=== PATIENT | male | born 2000 | race Caucasian/White ===

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

== ENCOUNTER 2021-01-05 16:59 | Emergency (ER) | payer BC, OTHER ==
[2021-01-05 17:21] VITALS: TEMP 98.3
--- NOTE | 2021-01-05 18:11 | XR ---
EXAMINATION TYPE: XR hand complete LT DATE OF EXAM: 01/05/2021 COMPARISON: NONE HISTORY: Pain TECHNIQUE: 3 views FINDINGS: Metacarpals are intact. I see no fracture nor dislocation. Joint spaces are normal. There a re no erosions. IMPRESSION: Negative left hand exam. No fracture.
--- NOTE | 2021-01-05 19:00 | ED ---
Upper Extremity HPI - General Chief Complaint: Extremity Injury, Upper Stated Complaint: finger injury Time Seen by Provider: 01/05/21 17:20 Source: patient Mode of arrival: ambulatory Limitations: no limitations - History of Present Illness Initial Comments: Patient is a 20-year-old male with no past medical history presents to emergency room with reported right hand pain. 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 States that he began having pain in the distal tip of his right middle finger. Patient had notable blood blisters. There is no disruption in the skin. He has decreased range of motion secondary to pain. He is right hand dominant. He also sustained a laceration to the distal top of his right thumb. Unknown of his last tetanus vaccine. Denies any wrist or elbow pain. No other alleviating, precipitating or modifying factors - Related Data Home Medications Medication Instructions Recorded Confirmed No Known Home Medications 06/19/18 06/19/18 Allergies Allergy/AdvReac Type Severity Reaction Status Date / Time No Known Allergies Allergy Verified 01/05/21 17:21 Review of Systems ROS Statement: Those systems with pertinent positive or pertinent negative responses have been documented in the HPI. ROS Other: All systems not noted in ROS Statement are negative. Past Medical History Past Medical History: No Reported History History of Any Multi-Drug Resistant Organisms: None Reported Past Surgical History: No Surgical Hx Reported Past Psychological History: No Psychological Hx Reported Smoking Status: Never smoker Past Alcohol Use History: Occasional Past Drug Use History: None Reported General Exam Limitations: no limitations General appearance: alert Extremities exam: Present: other (several small 2-4 mm blood blisters dorsal aspect right middle finger. No active bleeding. 10% subungal hematoma. superficial avulsion 7 x 5 mm right distal thumb. No active bleeding) Psychiatric exam: Present: normal affect, normal mood Skin exam: Present: warm, dry Course Vital Signs 01/05/21 01/05/21 01/05/21 17:19 19:00 19:05 Temperature 98.3 F 98.3 F Pulse Rate 84 85 85 Respiratory 20 16 16 Rate Blood Pressure 129/79 142/98 142/98 O2 Sat by Pulse 98 98 98 Oximetry Medical Decision Making - Medical Decision Making Upon arrival patient placed in room 16. History and physical exam was performed. The patient's hand was cleansed. Avulsion does not require repair at this time. Tetanus shot is recommended however the patient adamantly refuses. Risks are discussed the patient and he continues to refuse. X-ray is performed which demonstrates no acute fractures. I did discuss the diagnosis, differential and treatment options. Patient is placed in a baseball splint. Recommended that he have repeat x-rays in 7-10 days if he has persistent pain. He does have intact range of motion. I did offer something for pain control however he refused. He is instructed to take Motrin and Tylenol at home. Return to the emergency room for any new or worsening symptoms. patient was discharged home in stable cond ition Disposition Clinical Impression: Right hand pain, Finger laceration Disposition: HOME SELF-CARE Condition: Stable Instructions (If sedation given, give patient instructions): Hand Sprain (ED) Additional Instructions: Please follow-up with your primary care doctor in 2-4 days for reevaluation. You may need repeat x-rays in 7 days if your pain persists. Keep your cut clean and dry. Return to the emergency room for any new or worsening symptoms Is patient prescribed a controlled substance at d/c from ED?: No Referrals: None,Stated [Primary Care Provider] - 1-2 days Time of Disposition: 19:00
[2021-01-05 19:01] VITALS: BP 142/98; PULSE 85; RESP 16
== END 2021-01-05 19:05 | disposition home or self-care (01) ==
LOC: EC 16:59
DX: S61.011A Laceration without foreign body of right thumb without damage to nail, initial encounter (principal); W31.89XA Contact with other specified machinery, initial encounter; Y93.89 Activity, other specified
CPT/HCPCS: 99283

== ENCOUNTER 2022-01-03 10:36 | Emergency (ER) | payer BC ==
[2022-01-03 11:26] VITALS: TEMP 98
[2022-01-03] MEDS ORDERED: diphenhydrAMINE 50 MG/ML 1 ML VIAL IVP STA (12:13)
[2022-01-03] MEDS ORDERED: METOCLOPRAMIDE 5 MG/ML 2 ML VIAL IVP STA (12:13)
[2022-01-03] MEDS ORDERED: DEXAMETHASONE SOD PHOSPHATE 10 MG/ML 1 ML VIAL IV STA (12:13)
[2022-01-03] MEDS ORDERED: SODIUM CHLORIDE 0.9% 1,000 ML IV STA (12:13)
[2022-01-03 12:33] LABS: Basophils % (A) 0 %; Eosinophils # (A) 0.1 k/uL (0-0.7); Eosinophils % (A) 1 %; HCT 44.4 % (39.0-53.0); HGB 15.3 gm/dL (13.0-17.5); Lymphocytes # (A) 0.8 k/uL (1.0-4.8); Lymphocytes % (A) 9 %; MCH 31.6 pg (25.0-35.0); MCHC 34.4 g/dL (31.0-37.0); MCV 91.9 fL (80.0-100.0); Mean Platelet Volume 7.6; Monocytes # (A) 0.3 k/uL (0-1.0); Monocytes % (A) 3 %; Neutrophils # (A) 7.4 k/uL (1.3-7.7); Neutrophils % (A) 85 %; Platelet Count 236 k/uL (150-450); RBC 4.83 m/uL (4.30-5.90); RDW 12.8 % (11.5-15.5); WBC 8.7 k/uL (3.8-10.6)
[2022-01-03 12:44] LABS: ALT 15 U/L (4-49); AST 22 U/L (17-59); African American GFR (CKD) >90 (>60 ml/min/1.73 sqM); Albumin 4.9 g/dL (3.5-5.0); Alkaline Phosphatase 60 U/L (38-126); Anion Gap 5 mmol/L; Blood Urea Nitrogen 12 mg/dL (9-20); Calcium 9.9 mg/dL (8.4-10.2); Carbon Dioxide 28 mmol/L (22-30); Chloride 105 mmol/L (98-107); Glucose 106 mg/dL (74-99); Non-African American GFR(CKD) >90 (>60 ml/min/1.73 sqM); Potassium 4.2 mmol/L (3.5-5.1); Sodium 138 mmol/L (137-145); Total Bilirubin 0.8 mg/dL (0.2-1.3); Total Protein 7.9 g/dL (6.3-8.2)
--- NOTE | 2022-01-03 13:13 | CT ---
EXAMINATION TYPE: CT brain wo con DATE OF EXAM: 01/03/2022 COMPARISON: None HISTORY: headache and tongue numbness CT DLP: 1099.[address] of the brain was performed. The ventricles, basal cisterns and sulci overlying the cerebral convexities demonstrate a normal appe arance. There is no evidence for intracranial hemorrhage or sulcal effacement. 6 mm parenchymal cyst left ba sterling ganglia. No mass effects are seen. Osseous calvarium is intact. If symptoms persist consider MRI as clinically warranted. IMPRESSION: 1. No acute intracranial process is seen at this time.
[2022-01-03] MEDS ORDERED: KETOROLAC 15 MG/ML 1 ML VIAL IVP STA (13:18)
[2022-01-03 13:30] VITALS: BP 107/68; PULSE 59; RESP 16
--- NOTE | 2022-01-03 13:36 | ED ---
General Adult HPI - General Chief complaint: Neuro Symptoms/Deficit Stated complaint: Headache and numbness in hands and tongue Time Seen by Provider: 01/03/22 11:25 Source: patient Mode of arrival: ambulatory Limitations: no limitations - History of Present Illness Initial comments: 21-year-old male with no past medical history who presents to the emergency department with left upper extremity numbness, tongue numbness and a headache. States that around 8:30 he was at work when he had sudden onset of numbness from his elbow down to his hand as well as tongue numbness. He reports that he was biting on his tongue and he couldn't feel it. The symptoms subsided after about a half hour. He then began having a pounding headache. His work gave him 2 aspirins. He had a similar episode 2 weeks ago. Denies history of headaches. No visual changes. No head trauma. No lower extremity weakness. No history of stroke. Denies fevers or neck pain. No other alleviating precipitating or modifying factors - Related Data Home Medications Medication Instructions Recorded Confirmed No Known Home Medications 06/19/18 01/03/22 Allergies Allergy/AdvReac Type Severity Reaction Status Date / Time No Known Allergies Allergy Verified 01/03/22 13:09 Review of Systems ROS Statement: Those systems with pertinent positive or pertinent negative responses have been documented in the HPI. ROS Other: All systems not noted in ROS Statement are negative. Past Medical History Past Medical History: No Reported History History of Any Multi-Drug Resistant Organisms: None Reported Past Surgical History: No Surgical Hx Reported Past Psychological History: No Psychological Hx Reported Smoking Status: Never smoker Past Alcohol Use History: Occasional Past Drug Use History: None Reported General Exam Limitations: no limitations General appearance: alert, in no apparent distress Head exam: Present: atraumatic, normocephalic, normal inspection Eye exam: Present: PERRL, other (strabismus right eye). Absent: scleral icterus, conjunctival injection, periorbital swelling ENT exam: Present: normal exam, mucous membranes moist Neck exam: Present: normal inspection. Absent: tenderness, meningismus, lymphadenopathy Respiratory exam: Present: normal lung sounds bilaterally. Absent: respiratory distress, wheezes, rales, rhonchi, stridor Cardiovascular Exam: Present: regular rate, normal rhythm, normal heart sounds. Absent: systolic murmur, diastolic murmur, rubs, gallop, clicks GI/Abdominal exam: Present: soft, normal bowel sounds. Absent: distended, tenderness, guarding, rebound, rigid Extremities exam: Present: normal inspection, full ROM, normal capillary refill. Absent: tenderness, pedal edema, joint swelling, calf tenderness Back exam: Present: normal inspection Neurological exam: Present: alert, oriented X3, CN II-XII intact Psychiatric exam: Present: normal affect, normal mood Skin exam: Present: warm, dry, intact, normal color. Absent: rash Course Vital Signs 01/03/22 01/03/22 11:21 13:28 Temperature 98.0 F Pulse Rate 68 59 L Respiratory 18 16 Rate Blood Pressure 125/80 107/68 O2 Sat by Pulse 99 99 Oximetry Medical Decision Making - Medical Decision Making Upon arrival patient is placed into room 2. NIH is 0 at this time. IV is established and the patient is given a migraine cocktail. Labs are performed the patient does go for CT of his head. There were traces within normal limits. CT of the brain demonstrates a 6 no meaner parenchymal cyst of the left basal ganglia however no acute process. Patient is reevaluated and headache has improved at this time. He will be discharged home and recommended to follow up with his primary care doctor. Also recommend neurology follow-up. Return for any new or worsening symptoms. Patient. He agreed with the plan and was discharged home in stable condition - Lab Data Result diagrams: 01/03/22 12:13 01/03/22 12:13 Lab Results 01/03/22 01/03/22 Range/Units 12:13 12:13 WBC 8.7 (3.8-10.6) k/uL RBC 4.83 (4.30-5.90) m/uL Hgb 15.3 (13.0-17.5) gm/dL Hct 44.4 (39.0-53.0) % MCV 91.9 (80.0-100.0) fL MCH 31.6 (25.0-35.0) pg MCHC 34.4 (31.0-37.0) g/dL RDW 12.8 (11.5-15.5) % Plt Count 236 (150-450) k/uL MPV 7.6 Neutrophils % 85 % Lymphocytes % 9 % Monocytes % 3 % Eosinophils % 1 % Basophils % 0 % Neutrophils # 7.4 (1.3-7.7) k/uL Lymphocytes # 0.8 L (1.0-4.8) k/uL Monocytes # 0.3 (0-1.0) k/uL Eosinophils # 0.1 (0-0.7) k/uL Basophils # 0.0 (0-0.2) k/uL Sodium 138 (137-145) mmol/L Potassium 4.2 (3.5-5.1) mmol/L Chloride 105 (98-107) mmol/L Carbon Dioxide 28 (22-30) mmol/L Anion Gap 5 mmol/L BUN 12 (9-20) mg/dL Creatinine 0.81 (0.66-1.25) mg/dL Est GFR (CKD-EPI)AfAm >90 (>60 ml/min/1.73 sqM) Est GFR (CKD-EPI)NonAf >90 (>60 ml/min/1.73 sqM) Glucose 106 H (74-99) mg/dL Calcium 9.9 (8.4-10.2) mg/dL Total Bilirubin 0.8 (0.2-1.3) mg/dL AST 22 (17-59) U/L ALT 15 (4-49) U/L Alkaline Phosphatase 60 (38-126) U/L Total Protein 7.9 (6.3-8.2) g/dL Albumin 4.9 (3.5-5.0) g/dL Disposition Clinical Impression: Paresthesia, Migraine Disposition: HOME SELF-CARE Condition: Stable Instructions (If sedation given, give patient instructions): Acute Headache (DC) Additional Instructions: Please follow-up with a neurologist in regards to your symptoms. Return for any new or worsening symptoms Is patient prescribed a controlled substance at d/c from ED?: No Referrals: Almas Galindo MD [Primary Care Provider] - 1-2 days Time of Disposition: 13:35
== END 2022-01-03 13:40 | disposition home or self-care (01) ==
LOC: EC 10:36
DX: R20.2 Paresthesia of skin (principal); G43.909 Migraine, unspecified, not intractable, without status migrainosus
CPT/HCPCS: 36415; 80053; 85025; 70450; 99284; 96374; 96375; 96361; J1200; J1100; J2765; J1885